=== PATIENT | male | born 1945 | race Caucasian/White ===

== ENCOUNTER 2021-11-18 06:40 | Outpatient (CLI) | payer OTHER, SELFPAY ==
--- NOTE | 2021-11-18 | USCV_ITS ---
Brian Ruiz Age: 76 Gender: M : 1945 Exam Date: 11/18/2021 07:21 Ordering Phys: Mone Yan MD Technologist: NATE [place]am [place] [facility] [place]: PAD Risk Factors: Previous Vascular Surgery: RIGHT LEFT Waveform Velocity (cm/s) Velocity (cm/s) Waveform Biphasic 71.3 Iliac Prox 74.5 Biphasic Biphasic 76.7 Iliac Mid 64.9 Biphasic Biphasic 66.0 Iliac Distal 63.2 Biphasic Biphasic 88.0 RESIDENTIAL PROGRAM COORDINATOR 50.6 Biphasic Biphasic 79.5 SFA Prox 77.7 Biphasic Biphasic 82.9 SFA Mid 71.5 Biphasic Biphasic 82.9 SFA Dist 84.6 Biphasic Biphasic 44.7 POP 56.7 Biphasic Biphasic 73.8 HAIR MACHINE OPERATOR 21.8 Biphasic Biphasic 37.7 DPA 49.7 Biphasic 1.0 JAZMYNE 1.0 FINDINGS Mild to moderate plaques in the iliac and femoral arteries bilaterally Biphasic arterial Doppler waveforms bilaterally Normal Doppler flow velocities bilaterally Normal resting ABIs bilaterally CONCLUSIONS Mild to moderate plaques in the iliac and femoral arteries bilaterally Normal resting ABIs bilaterally suggesting no significant arterial obstruction Dr Horace Lerma MD [facility] (Electronically Signed) Final Date: 18 November 2021 20:58 S
--- NOTE | 2021-11-18 | USCV_ITS ---
Brian Ruiz Age: 76 Gender: M : 1945 Exam Date: 11/18/2021 07:03 Ordering Phys: Mone Yan MD Technologist: NATE [place] [facility] [place]: AAA Screening HISTORY: Diameter (cm) AP x Transverse x Length Velocity (cm/s) Waveform Prox Aorta: 2.22 x 2.29 x 62.30 Biphasic Mid Aorta: 1.95 x 2.34 x 56.40 Biphasic Distal Aorta: 1.70 x 1.81 x 67.70 Biphasic Right Iliac Prox: 0.79 x 0.94 x 144.20 Biphasic Left Iliac Prox: 0.89 x 1.04 x 120.60 Biphasic Stent Prox Landing x x Aneurysmal Sac Max x x Lt Lat Sac Dim Rt Lat Sac Dim Stent Dist Landing x x Right Iliac Stent x x Left Iliac Stent x x Right Renal Art Left Renal Art FINDINGS: Mild diffuse plaques in the abdominal aorta Normal aortic and common iliac artery dimensions Normal Doppler flow velocities CONCLUSIONS No evidence of aneurysm in the abdominal aorta or in the proximal common iliac arteries No evidence of any significant arterial obstruction in the above- mentioned vessels Mild diffuse plaques in the abdominal aorta Dr Horace Lerma MD [facility] (Electronically Signed) Final Date: 18 November 2021 20:48 S
== END 2021-11-18 06:41 | disposition home or self-care (01) ==
LOC: RAD 06:41
PROVIDERS: PCP Family Medicine; Visit Provider Family Medicine
DX: Z01.89 Encounter for other specified special examinations (principal); I70.203 Unspecified atherosclerosis of native arteries of extremities, bilateral legs
CPT/HCPCS: 76706; 93925

== ENCOUNTER 2022-01-18 13:27 | Outpatient (RCR) | payer OTHER, SELFPAY | END 2022-02-04 23:59 | disposition home or self-care (01) | LOC: CR 13:27 | PROVIDERS: PCP Family Medicine; Referring Provider Family Medicine; Visit Provider Family Medicine | DX: I73.9 Peripheral vascular disease, unspecified (principal) | CPT/HCPCS: 93798 ==

== ENCOUNTER 2022-02-07 11:25 | Outpatient (RCR) | payer OTHER, SELFPAY | END 2022-03-07 23:59 | disposition home or self-care (01) | LOC: CR 11:25 | PROVIDERS: PCP Family Medicine; Referring Provider Family Medicine; Visit Provider Family Medicine | DX: I73.9 Peripheral vascular disease, unspecified (principal) | CPT/HCPCS: 93798 ==

== ENCOUNTER 2022-03-08 11:24 | Outpatient (RCR) | payer OTHER, SELFPAY | END 2022-04-06 23:59 | disposition home or self-care (01) | LOC: CR 11:24 | PROVIDERS: PCP Family Medicine; Referring Provider Family Medicine; Visit Provider Family Medicine | DX: I73.9 Peripheral vascular disease, unspecified (principal) | CPT/HCPCS: 93798 ==

== ENCOUNTER 2022-04-07 10:29 | Outpatient (RCR) | payer OTHER, SELFPAY | END 2022-05-07 23:59 | disposition home or self-care (01) | LOC: CR 10:29 | PROVIDERS: PCP Family Medicine; Referring Provider Family Medicine; Visit Provider Family Medicine | DX: I73.9 Peripheral vascular disease, unspecified (principal) | CPT/HCPCS: 93798 ==